=== PATIENT | female | born 1970 | race Caucasian/White ===

== ENCOUNTER → 2024-02-24 08:24 | Outpatient (REF) | payer BC, SELFPAY | LOC: WDC 08:24 | PROVIDERS: ATTENDING PHYSICIAN Nurse Practitioner Adult Health; FAMILY PHYSICIAN Family Medicine | DX: Z12.31 Encounter for screening mammogram for malignant neoplasm of breast (principal) | CPT/HCPCS: 77063; 77067 ==

== ENCOUNTER → 2025-02-03 13:19 | Outpatient (REF) | payer BC, SELFPAY | LOC: HWRAD 13:19 | PROVIDERS: ATTENDING PHYSICIAN Nurse Practitioner Adult Health; FAMILY PHYSICIAN Family Medicine | DX: N93.9 Abnormal uterine and vaginal bleeding, unspecified (principal) | CPT/HCPCS: 76830; 76856 ==

== ENCOUNTER → 2025-02-27 07:28 | Outpatient (REF) | payer BC, SELFPAY | LOC: WDC 07:28 | PROVIDERS: ATTENDING PHYSICIAN Nurse Practitioner Adult Health; FAMILY PHYSICIAN Family Medicine | DX: Z12.31 Encounter for screening mammogram for malignant neoplasm of breast (principal) | CPT/HCPCS: 77063; 77067 ==

== ENCOUNTER → 2025-03-27 09:23 | Outpatient (REF) | payer BC, SELFPAY | LOC: HWRAD 09:23 | PROVIDERS: ATTENDING PHYSICIAN Surgery; FAMILY PHYSICIAN Family Medicine | DX: K42.9 Umbilical hernia without obstruction or gangrene (principal) | CPT/HCPCS: 74176 ==

== ENCOUNTER 2025-06-13 06:13 | Day surgery (SDC) | payer BC, SELFPAY ==
[2025-05-30 13:41] VITALS: BMI 21.3
[2025-06-13] VITALS (13 sets, daily range): BP systolic 109–160; BP diastolic 65–90; BMI 21.3
[2025-06-13] MEDS: TYLENOL 1000 MG PO (11:41)
[2025-06-13] MEDS: NEURONTIN 300 MG PO (11:41)
[2025-06-13] MEDS: NORMOSOL-R/PLASMALYTE-A 1000 IV (11:52)
--- NOTE | 2025-06-13 12:34 | W.SUR.PREOP ---
Pre-Operative Surgical Note
-
I have examined this patient prior to the performance of the scheduled procedure.
The patient's condition is unchanged from the time of the current History and
Physical and the patient is able to undergo the scheduled procedure.
--- NOTE | 2025-06-13 12:34 | HP.FOC2 ---
Focused History & Physical
Chief Complaint
HPI:
Chief Complaint: Incisional hernia
HPI / Indication for Planned Procedure: This is a 54-year-old female with a history of an open appendectomy, cholecystectomy, the latter complicated by an umbilical/incisional hernia initially repaired primarily complicated by recurrence with
subsequent open incisional hernia repair with mesh plug and onlay mesh now with subsequent recurrence here for definitive repair.
Relevant Past Medical History: Negative
Relevant Social History: Negative
Relevant Family History: Negative
Relevant Past Surgical History: Positive for (appendectomy, cholecystectomy, the latter complicated by an umbilical/incisional hernia initially repaired primarily complicated by recurrence with subsequent open incisional hernia repair with mesh plug
and onlay mesh)
Review of Systems
Review of Pertinent Systems: All Systems Negative
Medication
See Medication form for detailed medications: Yes
Medication List (including Herbals & OTC):
losartan 25 mg tablet 25 mg PO DAILY 06/06/25
multivitamin 1 tab PO DAILY 06/13/25
Medications Reviewed: Yes
Allergies and Reactions
Patient has Allergies: Yes
Noted Allergies and Reactions:
Allergy/AdvReac Type Severity Reaction Status Date / Time
hydromorphone (From Dilaudid) Allergy Severe Verified 06/13/25 11:37
Plumonary
Edema
latex Allergy Blisters Verified 06/13/25 11:37
Pertinent Physical Exam
All Other Systems: Negative
Head/Neck: Normal
Diagnosis / Assessment
This is a 54-year-old female with recurrent incisional hernia
Plan / Procedure
Will plan for an open incisional hernia repair with mesh, and explantation of her prior mesh.
Anesthesia/Sedation to be done by Anesthesia Provider: Yes
[2025-06-13] MEDS: MORPHINE SULFATE 2 MG IV ×4 (14:54→18:42)
--- NOTE | 2025-06-13 16:47 | W.IMMPOSTOP ---
Surgical Immed Post Op Note
-
Primary Surgeon: Carlo Orozco MD
Assisting Surgeon: None
Pre-op Diagnosis: Recurrent incisional hernia
Post-op Diagnosis: Same
Procedure Performed:
Open recurrent incisional hernia repair with mesh
Explantation of mesh
Anesthesia Type: General
Specimen / Cultures: Abdominal wall mass
Estimated Blood Loss: 3 cc
Complications: None
Operative Findings: Small recurrence containing preperitoneal fat as well as a contained seroma to the right lateral side of her previous mesh which was placed and what appears to be the preperitoneal space. The coated piece of mesh was excised
completely. There was no adhesions to the underlying bowel. The hernia defect measured roughly 4 cm round. A [place]Stoppa repair, retrorectus on the left side and preperitoneal on the right was developed as her peritoneum was actually fairly
robust. The pocket measured roughly 11 cm long by 10 cm wide. The posterior rectus sheath was approximated using running 0 Vicryl sutures anchored at each apex and run towards the middle and tied together. A appropriately sized Bard soft uncoated
polypropylene mesh was then placed in the space without fixation and then the overlying anterior fascia was approximated using running 0 PDS suture. The skin was then approximated with interrupted 3-0 Vicryl sutures followed by Dermabond.
POST OP PLAN:
Imaging: None
Labs: Routine AM
Diet: Advance to Regular as tolerated
Analgesia: Tylenol 650mg q6 Maciel, morphine
Neuro/vascular checks: Per unit protocol
AC/AP: Hold Therapeutic AC, Ok for DVT PPx
Activity: Ad Janine
Wound/Incisions/Drains: Routine
Abx: None
Dispo: RNF, anticipate discharge home tomorrow pending clinical course and pain control.
[2025-06-13] MEDS: TORADOL 10 MG IV ×2 (18:40→23:55)
--- NOTE | 2025-06-13 19:29 | PTCARENOTE ---
Pt arrived 1800 from PACU AAOX3. VSS. midline incision OA with glue. oriented pt to room and call johnson. report given to nightshift nurse
[2025-06-13] MEDS: TYLENOL 650 MG PO ×2 (20:00→23:55)
--- NOTE | 2025-06-14 02:39 | DOWNTIME ---
There was a [employer] Downtime on 06/14/2025 from 0100 to 06/14/2025 at 0235. Downtime documentation of patient's care, including medication administrations, has been reconciled in the electronic record per guidelines. Refer to the
patient's paper chart under the miscellaneous tab to see printed paper medication records and downtime forms.
[2025-06-14 03:08] VITALS: BP 118/72
[2025-06-14 03:09] LABS: Glucose - Point of Care 103 mg/dl (70-99)
[2025-06-14 03:12] VITALS: BP 108/80
[2025-06-14 03:46] VITALS: BP 116/66; BP 126/85; BP 130/81; PULSE 66; PULSE 69; PULSE 75
[2025-06-14 04:24] LABS: Hematocrit 30.8 % (37.0-47.0); Hemoglobin 10.2 g/dL (12.0-16.0); Mean Corp Hgb Conc. 33.1 g/dL (33.0-37.0); Mean Corpuscular Volume 83.9 fL (81.0-99.0); Nucleated Red Blood Cells % 0 %; Platelet Count 162 10^3/uL (130-400); Red Cell Dist. Width 15.4 % (11.5-14.5)
[2025-06-14 04:48] LABS: Blood Urea Nitrogen 14 mg/dl (7-17); Calcium 8.8 mg/dl (8.4-10.2); Carbon Dioxide 23 mmol/L (22-30); Chloride 107 mmol/L (98-107); Estimated Creatinine Clearance 76 ml/min; Glucose 93 mg/dl (70-99); Potassium 4.1 mmol/L (3.5-5.1); Sodium 135 mmol/L (135-145); eGFR > 60.00
[2025-06-14] MEDS: TYLENOL PO (06:00)
[2025-06-14] MEDS: TORADOL 10 MG IV (06:03)
[2025-06-14] MEDS: TYLENOL 650 MG PO (06:04)
--- NOTE | 2025-06-14 06:44 | PTCARENOTE ---
pt became dizzy, diaphoretic and pale and needed to be assisted back to bed from bathroom. [id number] ortho vs 116/66, 130/81, 126/85. When laying back in bed pt stated she felt better. s/w PATIENT PORTAL CONCIERGE Alexander - obtain labs. hgb=10.2. PATIENT PORTAL CONCIERGE updated. instucted
pt thats she is not allowed OOB unless staff is present
[2025-06-14 07:45] VITALS: BP 129/84
--- NOTE | 2025-06-14 08:31 | W.PN.GS2 ---
Today's Communication / Plan
-
Dispo planning
Assessment / Plan
-
This is a 54-year-old female postoperative day 1 from an open recurrent incisional hernia repair with mesh. Doing well, expected postoperative course.
Will DC home today
Time Spent
Total Time Spent with Patient (in minutes): 15
Subjective Data
-
Date of Service: June 14, 2025
Interval Events:
No acute events overnight. Slept well. Pain Controlled. Denies Nausea/Vomiting, +bowel function. Tolerating diet.
Objective Data
-
Intake and Output
06/13/25 06/14/25 06/15/25
06:59 06:59 06:59
Intake Total 660 / 660
Balance 660 / 660
Intake:
Oral fluids 660 / 660
Other:
Number of approximated MODERATE 1
amounts of urine
Vital Signs
Temp Pulse Resp BP Pulse Ox
99.0 F 77 16 129/84 99
06/14/25 03:12 06/14/25 07:45 06/14/25 07:45 06/14/25 07:45 06/14/25 07:45
Lab Results
06/14/25 04:16
06/14/25 04:16
Calcium 8.8 mg/dl (8.4-10.2) 06/14/25 04:16
Physical Exam
-
GENERAL/NEURO: Awake, Alert, no distress
CHEST: Unlabored breathing on RA
ABDOMEN: Soft, Non-Tender, Non-Distended, incision clean dry and intact.
Patient has a gunn catheter: No
Patient has a central line: No
[2025-06-14 10:19] VITALS: BP 161/92
--- NOTE | 2025-06-14 12:06 | CM ---
Initial assessment completed with patient who lives with her in a 3 story home plus basement with B/B on 2nd and bath on 1st, 1 step to enter. [employer] patient was independent in ADL's and ambulation, drives. No DME or in-home services. No
HC-POA. PCP is Dr. Qi Dalal. Pharmacy is [facility] in [place]. Discharge POC: Anticipate home with no needs.
--- NOTE | 2025-06-14 12:10 | CM ---
Patient has been medically cleared for discharge to home with no additional skilled services. Patient has arranged for transport home.
--- NOTE | 2025-06-15 08:34 | OR.RPT ---
Operative Report
Operative Report
Patient Name: Anna Major
: 1970
Date of Operation: 06/13/2025
Preoperative Diagnosis: Incisional ventral hernia
Postoperative Diagnosis: Same
Procedure(s):
1. Open recurrent incisional hernia repair with mesh ([place]-Stoppa)
2. Bilateral tap blocks
Surgeon(s):
Dr. Orozco
Therapy Manager(s):
None
Anesthesia: General
Estimated Blood Loss: 3 cc
Urine Output: See anesthesia record
Drains/Lines/Implants:
16 [place] Lopez, removed at the end of case
Specimens: None
Indication for surgery:
This is a 54-year-old female with a history of a laparoscopic cholecystectomy with port site hernia that was repaired initially primarily followed by an open mesh repair who subsequently developed a repeat recurrence. After review of their
therapeutic options she elected to pursue an open repair.
Operative Findings: Small recurrence containing preperitoneal fat as well as a contained seroma to the right lateral side of her previous mesh which was placed and what appears to be the preperitoneal space. The coated piece of mesh was excised
completely. There was no adhesions to the underlying bowel. The hernia defect measured roughly 4 cm round. A [place]-Stoppa repair, retrorectus on the left side and preperitoneal on the right was developed as her peritoneum was actually fairly
robust. The pocket measured roughly 11 cm long by 10 cm wide. The posterior rectus sheath was approximated using running 0 Vicryl sutures anchored at each apex and run towards the middle and tied together. A appropriately sized Bard soft uncoated
polypropylene mesh was then placed in the space without fixation and then the overlying anterior fascia was approximated using running 0 PDS suture. The skin was then approximated with interrupted 3-0 Vicryl sutures followed by Dermabond.
Details of the operation:
After successful induction of general anesthesia and placement of an endotracheal tube, a Lopez catheter was placed. The patient was clipped, prepped and draped in the supine position. A team timeout was performed confirming administration of DVT
prophylaxis, IV antibiotics and SCDs. A vertical midline periumbilical incision was made incorporating a portion of her previous infraumbilical incision. The abdomen was entered safely superior to the hernia sac. There was no underlying bowel.
We did encounter a seroma sac as well as the hernia to the right of midline which was all excised as was the surrounding coated mesh which measured roughly 4 cm. On the patient's left side we entered the retrorectus space and developed it laterally
for a few centimeters and then extending cranially and caudally. On the patient's right side we were actually able to get into the preperitoneal space so we elected not to enter the retrorectus space on the side and connected this to our previous
dissection both superiorly and inferiorly. There were a few small rents in the flap which were closed with 3-0 Vicryl. The posterior rectus sheaths were then approximated using 0 Vicryl suture anchored at each apex and run towards the middle. The
pocket measured roughly 11 cm long by 10 cm wide. A corresponding sized piece of mesh was then cut out of a 15 x 15 cm Bard soft and coated polypropylene mesh and placed into the pocket flat, without tacking sutures. The anterior sheaths were then
approximated using 0 PDS suture anchored at each apex and run towards the middle and tied together. The skin was then approximated using interrupted 3-0 Vicryl sutures followed by a running 4-0 Monocryl, followed by Dermabond. Counts were correct
x2. The patient was awakened from general anesthesia and transported to the recovery area in good condition.
I was the attending physician and performed the procedure with no assistance. I was present for all portions of the case
Carlo Orozco MD
== END 2025-06-14 10:56 | disposition home or self-care (01) ==
LOC: SDS 06:13
PROVIDERS: ATTENDING PHYSICIAN Surgery; FAMILY PHYSICIAN Family Medicine
DX: K43.2 Incisional hernia without obstruction or gangrene (principal)
CPT/HCPCS: 49615; 36415; 80048; 82962; 85025; 88300; 93005; C1781

== ENCOUNTER → 2025-08-21 07:41 | Outpatient (REF) | payer BC, SELFPAY | LOC: WDC 07:41 | PROVIDERS: ATTENDING PHYSICIAN Nurse Practitioner Adult Health; FAMILY PHYSICIAN Family Medicine | DX: R92.2 Inconclusive mammogram (principal) | CPT/HCPCS: 76641 ==